=== PATIENT | male | born 2000 | race Caucasian/White ===

== ENCOUNTER 2020-10-16 11:52 | Emergency (ER) | payer BC, SELFPAY ==
[2020-10-16 13:05] VITALS: BP 141/88; PULSE 70; RESP 19; TEMP 36.6; O2SAT 98; BMI 33.0
[2020-10-16 13:09] VITALS: BP 141/88; PULSE 70; RESP 19; TEMP 36.6; O2SAT 98
--- NOTE | 2020-10-16 13:09 | HMH.EDUTC ---
[facility] [place] Disposition Clinical Impression: Exposure to COVID-19 virus Disposition: Home, Self-Care Condition on Discharge: Good Instructions: Preventing the Spread of Coronavirus Discharge Instructions Additional Instructions: *Monitor Temp, Over the counter Motrin or Tylenol as directed/as needed Tylenol every 4 hours and Motrin every 6 hours (as long as your family doctor has told you that you can take it) for fever or pain. and straight to ER if unable to lower temp less than 101.0 after medication given *Warm salt water gargles may help to soothe the throat *Throat Lozenges *Warm fluids like tea with honey may help to soothe the throat *Sleep elevated *Humidifier/Vaporizer Follow up IMMEDIATELY for new or worsening symptoms or no Noticeable improvement over the next 48-72 hours. 911 for difficulty breathing or swallowing You were tested for today for COVID19 your test result should be back in the next 24-48 hours, you may call to the [facility] to see if your test results are back in the next 48 hours [phone] [facility] hours are 9am-9pm You was given a handout with instructions for Self Quarantine and Self isolation for while you wait on test results and what to do if they are positive If you are positive the Health Dept will be contacting you also Referrals: Rosalva Byrne [Primary Care Provider] - As needed Forms: Work/School Release Time of Disposition: 13:11 Medical Decision Making - Adrián Inquiry Pt receiving controlled substance: No Adrián was queried for this patient: No Vital Signs: 10/16/20 13:05 Temperature 97.8 F Temperature Source Oral Pulse Rate [Left] 70 Respiratory Rate 19 Blood Pressure [Right Arm] 141/88 H Blood Pressure Mean [Right Arm] 105 Blood Pressure Source [Right Arm] Automatic Cuff Blood Pressure Position [Right Arm] Supine 02 Sat by Pulse Oximetry 98 Oxygen Delivery Method Room Air Orders (Tests/Meds): ORDERS Category Date Time Status Covid-19 Nasal PCR Sendout [facility] 10/16/20 12:47 Ordered [facility] [place] HPI - General Stated complaint: covid exposure Time Seen by Provider: 10/16/20 13:09 Mode of Arrival: Ambulatory Source of Information: Patient Limitations: No Limitations Description of Symptoms (Recalled from Triage Doc. by RN): Covid testing- exposure asymptomatic HEENT Symptoms (Recalled from RN notes): No Resp Symptoms (Recalled from RN notes): No Skin Symptoms (Recalled from RN notes): No MS Symptoms (Recalled from RN notes): No Functional Status (Recalled from RN notes): wnl - History of Present Illness Provider Complaint: Patient state that he was recently exposed to COVID by a friend he was with over the weekend Denies any symptoms States that he didnt feel well last night but is feeling ok today but wanted to come in and get tested - Related Data Previous Rx's Medication Instructions Recorded amoxicillin 500 mg capsule 500 mg PO Q12H 10 Days #20 cap 12/27/19 Allergies Allergy/AdvReac Type Severity Reaction Status Date / Time No Known Allergies Allergy Verified 12/27/19 11:55 - Worker's Comp Is this a Worker's Comp case?: No Is this an H Worker's Comp?: No Is this a [place] Worker's Comp?: No [facility] History - Hepatitis A Screen Drug use history?: No High risk sexual behaviors?: No History of sexually transmitted infection?: No Currently employed?: No Childcare worker?: No Do you have indoor plumbing?: Yes Do you have electricity?: Yes Attestation statement:: This patient has been screened for Hepatitis A risk factors. I have reviewed the patient's past medical history: Yes Medical History: Denies:: Diabetes Mellitus Type 2, Seizures Other Surgeries: Yes: No Previous Surgery, Other Comment: Shoulder - Social History Smoking Status: Former smoker Tobacco Type: smokeless tobacco Alcohol Intake: never Substance Use Type: denies use Occupational Status: employed Housing: house Household Members: family Family Hx:: No si
[2020-10-17 13:59] LABS: Covid-19 Nasal PCR Sendout Lex NOT DETECTED
== END 2020-10-16 13:21 | disposition home or self-care (01) ==
PROVIDERS: Emergency Provider Nurse Practitioner; PCP Physician Assistant
DX: Z20.828 Contact with and (suspected) exposure to other viral communicable diseases (principal); F17.290 Nicotine dependence, other tobacco product, uncomplicated
CPT/HCPCS: 99201; U0004

== ENCOUNTER 2022-05-19 15:50 | Emergency (ER) | payer BC, SELFPAY ==
[2022-05-19 16:25] VITALS: BP 141/86; PULSE 87; RESP 19; TEMP 37.3; O2SAT 99; BMI 37.3
--- NOTE | 2022-05-19 16:52 | HMH.EDUTC ---
[facility] [place] Disposition Clinical Impression: Otitis media Qualifiers: Otitis media type: suppurative Chronicity: acute Laterality: bilateral Recurrence: non-recurrent Spontaneous tympanic membrane rupture: without spontaneous rupture Qualified Code(s): H66.003 - Acute suppurative otitis media without spontaneous rupture of ear drum, bilateral Otitis externa Qualifiers: Otitis externa type: swimmer's ear Chronicity: acute Laterality: bilateral Qualified Code(s): H60.333 - Swimmer's ear, bilateral Disposition: Home, Self-Care Condition on Discharge: Good Instructions: Middle Ear Infection, DI for Otitis Externa Additional Instructions: Start antibiotic as soon as possible and be sure to take as ordered for full length of time even though he should start feeling better in 24-48 hours. Tylenol or Motrin as needed for pain or fever Encourage fluids, water, Gatorade, Powerade, Pedialyte if infant/toddler/child Warm compresses often helps when placed over ear Return immediately for new or worsening symptoms no noticeable improvement in 48-72 hours and in 10-14 days to ensure the ears are return to baseline. Follow-up with primary care Prescriptions: Amoxicillin [Amoxicillin 500mg Tab] 500 mg PO BID 10 Days #20 tab Transmission Status: Pending to [id number] Neomycin/Polymyxin B Sulf/Hc [Cszktulu-Jdyniwnqq-FI Otic Susp 10mL] 2 drp OT BID 7 Days #10 ml Transmission Status: Pending to [id number] Referrals: Provider,Referral, [Primary Care Provider] - Time of Disposition: 16:57 Medical Decision Making - Adrián Inquiry Pt receiving controlled substance: No Vital Signs: 05/19/22 16:25 Temperature 99.1 F Temperature Source Oral Pulse Rate [Right Brachial] 87 Respiratory Rate 19 Blood Pressure [Right Arm] 141/86 H Blood Pressure Mean [Right Arm] 104 Blood Pressure Source [Right Arm] Automatic Cuff Blood Pressure Position [Right Arm] Sitting 02 Sat by Pulse Oximetry 99 Oxygen Delivery Method Room Air Orders (Tests/Meds): ED MEDICATIONS Discontinued Medications Generic Name Dose Route Start Last Admin Trade Name Freq PRN Reason Stop Dose Admin Ibuprofen 600 mg 05/19/22 16:51 Ibuprofen 600 Mg Tablet PO 05/19/22 16:52 ONCE ONE [facility] [place] HPI - General Chief complaint: Urgent Treatment [facility] Stated complaint: bilateral ear pain Time Seen by Provider: 05/19/22 16:52 Mode of Arrival: Ambulatory Source of Information: Patient Limitations: No Limitations Description of Symptoms (Recalled from Triage Doc. by RN): PATIENT C/O EAR PAIN AND FEVER SINCE FRIDAY HEENT Symptoms (Recalled from RN notes): Yes Resp Symptoms (Recalled from RN notes): No Skin Symptoms (Recalled from RN notes): No MS Symptoms (Recalled from RN notes): No Functional Status (Recalled from RN notes): WNL - History of Present Illness Provider Complaint: 21 yr old male presnets for emelia ear pain and fever - Related Data Previous Rx's Medication Instructions Recorded Amoxicillin [Amoxicillin 500mg Tab] 500 mg PO BID 10 Days #20 tab 05/19/22 Neomycin/Polymyxin B Sulf/Hc 2 drp OT BID 7 Days #10 ml 05/19/22 [Xrcawljp-Qscidajco-WR Otic Susp 10mL] Allergies Allergy/AdvReac Type Severity Reaction Status Date / Time No Known Allergies Allergy Verified 11/20/20 15:55 - Worker's Comp Is this a Worker's Comp case?: No [facility] History - Hepatitis A Screen Attestation statement:: This patient has been screened for Hepatitis A risk factors. I have reviewed the patient's past medical history: Yes Medical History: Denies:: Diabetes Mellitus Type 2, Seizures Other Surgeries: Yes: No Previous Surgery, Other Comment: Shoulder - Social History Smoking Status: Never smoker Tobacco Type: smokeless tobacco Alcohol Intake: never Substance Use Type: denies use Occupational Status: other Housing: house Household Members: family Family Hx:: No significant family history ROS Obtained: Yes Systems rev
[2022-05-19 16:54] VITALS: BP 141/86; PULSE 87; RESP 19; TEMP 37.3; O2SAT 99
== END 2022-05-19 17:00 | disposition home or self-care (01) ==
PROVIDERS: Emergency Provider Nurse Practitioner Family
DX: H66.003 Acute suppurative otitis media without spontaneous rupture of ear drum, bilateral (principal); H60.333 Swimmer's ear, bilateral
CPT/HCPCS: 99212; G0463

== ENCOUNTER 2023-07-23 19:22 | Emergency (ER) | payer BC, SELFPAY ==
[2023-07-23 19:24] VITALS: BP 157/81; PULSE 102; RESP 19; TEMP 36.9; O2SAT 100; BMI 35.9
--- NOTE | 2023-07-23 19:32 | ECG_ITS ---
APPROVED REPORT Exam: Resting ECG HR:102 bpm ECG Measurements Heart Rate 102 AXES AR 154 P 67 QRSd 100 QRS 96 QT 311 T 10 QTc 370 Conclusion SINUS TACHYCARDIA BORDERLINE RIGHT AXIS DEVIATION [QRS AXIS > 90] INCOMPLETE RIGHT BUNDLE BRANCH BLOCK [90+ ms QRS DURATION, TERMINAL R IN V1/V2, 40+ ms S IN I/aVL/V4/V5/V6] ABNORMAL RHYTHM ECG UNCONFIRMED REPORT Electronically signed by : Samir Tamez MD 07/25/2023 16:05:18
--- NOTE | 2023-07-23 19:40 | XR_ITS ---
PROCEDURE INFORMATION: Exam: XR Chest Exam date and time: 07/23/2023 7:56 PM Age: 22 years old Clinical indication: Pain; Right-sided; Additional info: R chest pain TECHNIQUE: Imaging protocol: Radiologic exam of the chest. Views: 1 view. COMPARISON: No relevant prior studies available. FINDINGS: Lungs: Unremarkable. No consolidation. Pleural spaces: Unremarkable. No pleural effusion. No pneumothorax. Heart/Mediastinum: Unremarkable. No cardiomegaly. Bones/joints: Unremarkable. IMPRESSION: No acute findings.
--- NOTE | 2023-07-23 19:41 | HMH.EDGENADL ---
Discharge Plan Disposition Patient Disposition: Home, Self-Care Condition: Good Prescriptions Prescriptions: No Action hydroxyzine pamoate [Vistaril] 25 mg capsule 25 mg PO TID PRN (Reason: Anxiety) Referrals Follow up/Referrals: Yasmany Healy MD [Primary Care Provider] - See instructions Activity Restrictions/Add. Instructions Additional Instructions/Restrictions: You were evaluated in the emergency department today. Please follow-up closely with your primary care provider. I also recommend follow-up with behavioral health. Take Tylenol and ibuprofen at home as needed for pain. Return to the emergency department for new or worsening symptoms. Clinical Impressions Clinical Impression: Chest pain, Anxiety Instructions Patient Instructions: DI for Atypical Chest Pain, DI for Anxiety -- Adult Discharge ED Provider: Senait Elizalde General Adult HPI General Chief complaint: Anxiety Stated complaint: dizzy pain under R arm Time Seen by Provider: 07/23/23 19:36 Mode of Arrival: Wheelchair Source of Information: Patient Limitations: No Limitations Description of Symptoms (Recalled from ER Triage Doc. by RN): 22 M presents with c/o that initially started 2 weeks ago with a cough and pain to his right anxillary area. This date, patient has the right axillary pain, feels jittery, and has increased anxiety. He sees an [facility] L[facility]TER in [facility] who prescribed him Vistaril 25mg to take when he feels anxious; however, that did not help him prior to arrival. History of Present Illness HPI narrative: This patient is a 22-year-old male with a history of depression and anxiety presenting to the emergency department for evaluation with concern for chest pain on the right side of his chest that started suddenly after he ate dinner today. He states that he also feels jittery. The pain is worse with movement and taking a deep breath. He states that he thought it might be related to anxiety, as he was recently diagnosed with this, however it is not going away. He took Vistaril which did not improve his symptoms. He denies any recent fevers, chills, cough, congestion, abdominal pain, rashes, or swelling. He denies any history of blood clots or clotting disorders. He does note that he has woken up Friday night as well as last night with an episode of emesis. 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 Related Data Home Medications Medication Instructions Recorded Confirmed hydroxyzine pamoate 25 mg capsule 25 mg PO TID PRN Anxiety 07/23/23 07/23/23 (Vistaril) Allergies Allergy/AdvReac Type Severity Reaction Status Date / Time lorazepam Allergy Mild Verified 01/09/23 10:27 [facility] Disclaimer: The information contained in this section may have been updated after the patient was seen, as this information can be updated by other users. Medical History Exposure to COVID-19 virus Otitis externa Otitis media Social History Smoking Status: Former smoker second hand exposure: No alcohol intake: never substance use type: denies use current occupational status: other Travel in the last 8 weeks: None household members: family housing: house ROS Obtained: Yes All systems reviewed & no additional complaints except as documented Physical Exam General General appearance: alert, in no apparent distress and anxious Head Head exam: atraumatic and normocephalic Eye Eye exam: Present normal appearance, PERRL and EOMI ENT ENT exam: Present normal exam, normal oropharynx, mucous membranes moist and normal external ear exam Neck Neck exam: Present normal inspection, full ROM and trachea midline; Absent tenderness Chest Chest inspection: Present normal inspection and symmetric chest wall rise; Absent tenderness Respiratory Respiratory exam: Present normal lung sounds bilaterally; Absent
[2023-07-23 19:50] LABS: POC Glucose,Bedside 108 (70-110)
[2023-07-23 20:04] LABS: Basophils # 0.1 K/mm3 (0-0.2); Basophils % 0.7 % (0.1-2.0); Eosinophils # 0.2 K/mm3 (0.0-0.4); Eosinophils % 2.1 % (0.1-12.0); Hematocrit 49.7 % (42.0-52.0); Hemoglobin 15.9 g/dL (14.1-18.0); Lymphocytes # 2.5 K/mm3 (0.7-4.5); Lymphocytes % 26.1 % (10-50); Mean Corpuscular HGB Conc 32.1 g/dL (31.8-35.4); Mean Corpuscular Hemoglobin 28.2 pg (27.0-31.2); Mean Corpuscular Volume 87.9 fl (80-94); Mean Platelet Volume 8.4 fl (7.4-10.4); Monocytes # 0.5 K/mm3 (0.1-1.0); Monocytes % 5.3 % (1.7-9.3); Neutrophils # 6.2 K/mm3 (1.8-7.8); Neutrophils % 65.8 % (37.0-80.0); Platelet Count 262 K/mm3 (142-424); Red Blood Count 5.65 M/mm3 (4.60-6.20); Red Cell Distribution Width 13.7 % (11.5-17.5); White Blood Count 9.4 K/mm3 (4.8-10.8)
[2023-07-23 20:21] LABS: Alanine Aminotransferase 30 U/L (12-78); Albumin Level 4.6 g/dl (3.5-5.0); Albumin/Globulin Ratio 1.6 (1.1-1.8); Alkaline Phosphatase 76 U/L (38-126); Anion Gap 16.9 mEq/L (5-15); Aspartate Amino Transferase 46 U/L (17-59); Bilirubin,Total 0.3 mg/dl (0.2-1.3); Blood Urea Nitrogen 19 mg/dl (9-20); Calcium 9.5 mg/dl (8.4-10.2); Carbon Dioxide 26 mmol/L (22.0-30.0); Chloride 100 mmol/L (98-107); Creatinine Clearance Estimated 205 mL/min (50-200); Estimated Glomerular Filt Rate 105 ml/min (>60); GFR (African American) 127 ML/MIN (>60); Globulin 2.9 g/dL (1.3-3.2); Glucose 105 mg/dl (74-100); Potassium 3.9 mmoL/L (3.5-5.1); Sodium 139 mmol/L (136-145); Total Protein,Serum 7.5 g/dl (6.3-8.2)
[2023-07-23 20:26] LABS: C-Reactive Protein 3.4 mg/L (0-4)
[2023-07-23 20:27] LABS: D-Dimer 0.63 ug/mL (0.0-0.5)
[2023-07-23 20:35] LABS: Troponin I < 0.01 ng/ml (0.00-0.034)
[2023-07-23 20:47] LABS: Erythrocyte Sedimentation Rate 2 mm/hr (0-15)
[2023-07-23 21:56] VITALS: BP 143/86; PULSE 89; RESP 19; TEMP 36.8; O2SAT 98
== END 2023-07-23 21:56 | disposition home or self-care (01) ==
PROVIDERS: Emergency Provider Emergency Medicine; PCP Emergency Medicine
DX: R07.9 Chest pain, unspecified (principal); M79.621 Pain in right upper arm; R00.0 Tachycardia, unspecified; I45.19 Other right bundle-branch block; F41.9 Anxiety disorder, unspecified; F32.A Depression, unspecified
CPT/HCPCS: 71045; 80053; 82962; 84484; 85025; 85378; 85651; 86140; 93005; 96374; 99285

== ENCOUNTER → 2023-11-19 09:09 | Outpatient (CLI) | payer BC, SELFPAY | LOC: SL 09:10 | PROVIDERS: PCP Nurse Practitioner Family; Visit Provider Nurse Practitioner Family | DX: R06.83 Snoring (principal); R40.0 Somnolence; R06.81 Apnea, not elsewhere classified | CPT/HCPCS: G0399 ==

== ENCOUNTER 2025-03-23 13:39 | Outpatient (CLI) | payer OTHER, SELFPAY ==
--- NOTE | 2025-03-23 13:46 | XR_ITS ---
FINAL REPORT CLINICAL HISTORY: foot injury pt states injury at work yesterday FINDINGS: RIGHT FOOT 3 views of the right foot were obtained. There is no acute fracture or dislocation. Visualized joint spaces are normally aligned. Soft tissues are unremarkable. IMPRESSION: No acute bony abnormality. Reviewed, Interpreted and Dictated by Joao Palacio MD Transcribed by Camille Meek Authenticated and [facility]
--- NOTE | 2025-03-23 13:46 | XR_ITS ---
FINAL REPORT CLINICAL HISTORY: ankle injury pt states injury at work yesterday FINDINGS: RIGHT ANKLE 3 views of the right ankle were obtained. There is no acute fracture or dislocation. The mortise is intact. Visualized joint spaces are normally aligned. There is diffuse soft tissue swelling, particular over the lateral malleolus. Mortise is intact. IMPRESSION: No acute bony abnormality. Reviewed, Interpreted and Dictated by Joao Palacio MD Transcribed by Camille Meek Authenticated and [facility]
== END 2025-03-23 23:59 | disposition home or self-care (01) ==
LOC: RAD 13:41
PROVIDERS: Visit Provider Nurse Practitioner
DX: S99.911A Unspecified injury of right ankle, initial encounter (principal); S99.921A Unspecified injury of right foot, initial encounter
CPT/HCPCS: 73610; 73630

== ENCOUNTER 2025-04-08 13:33 | Outpatient (CLI) | payer BC, SELFPAY ==
--- NOTE | 2025-04-08 13:36 | XR_ITS ---
FINAL REPORT CLINICAL HISTORY: Right ankle injury at work COMPARISON: 03/23/2025 FINDINGS: RIGHT ANKLE Three views of the right ankle were obtained. There is no acute fracture or dislocation. The mortise is intact. Visualized joint spaces are normally aligned. The bones are well-mineralized. There is moderate soft tissue swelling about the ankle. IMPRESSION: Moderate soft tissue swelling without acute bony abnormality. Reviewed, Interpreted and Dictated by Joao Palacio MD Transcribed by Allison Pérez Authenticated and [facility]
--- NOTE | 2025-04-08 13:36 | XR_ITS ---
FINAL REPORT CLINICAL HISTORY: Right foot pain COMPARISON: 03/23/2025 FINDINGS: RIGHT FOOT Three views demonstrate no acute fracture or dislocation. The joint spaces appear normal. No acute soft tissue abnormality is seen. IMPRESSION: No acute bony abnormality. Reviewed, Interpreted and Dictated by Joao Palacio MD Transcribed by Allison Pérez Authenticated and [facility][1]
== END 2025-04-08 23:59 | disposition home or self-care (01) ==
LOC: RAD 13:34
PROVIDERS: Visit Provider Physician Assistant
DX: S93.401A Sprain of unspecified ligament of right ankle, initial encounter (principal); M79.89 Other specified soft tissue disorders; Y99.0 Civilian activity done for income or pay
CPT/HCPCS: 73610; 73630